=== PATIENT | female | born 1975 | race Caucasian/White ===

== ENCOUNTER 2017-08-09 08:18 | Emergency (ER) | payer BC, SELFPAY ==
[2017-08-09 08:19] VITALS: BP 154/84; PULSE 71; RESP 19; TEMP 37; O2SAT 100; BMI 34.4
--- NOTE | 2017-08-09 08:33 | EKG12_ITS ---
Test Reason : CP Blood Pressure : / mmHG Vent. Rate : 066 BPM Atrial Rate : 066 BPM P-R Int : 168 ms QRS Dur : 088 ms QT Int : 408 ms P-R-T Axes : 055 030 025 degrees QTc Int : 427 ms Normal sinus rhythm Normal ECG Confirmed by DEE SMITH ([id number]), acquisitions editor CONNER AMBROCIO ([id number]) on 08/13/2017 4:02:02 PM Referred By: JANNET/CAROLINE Confirmed By:DEE SMITH
--- NOTE | 2017-08-09 08:33 | RAD_ITS ---
STUDY: X-RAY CHEST REASON FOR EXAM: Female, 42 years old. Chest pain this morning. Headache and nausea. TECHNIQUE: Frontal and lateral views of the chest. COMPARISON: None. FINDINGS: The lungs are clear and expanded. There is no demonstrated pleural abnormality. Normal size heart. Normal mediastinum and lia. Normal visualized pulmonary arteries. Normal visualized aortic arch and descending thoracic aorta. Normal visualized thoracic spine. Normal visualized ribs, clavicles, and shoulders. There is no demonstrated abnormality of the visualized soft tissue structures of the upper abdomen. RAD/Chest PA and Lateral IMPRESSION: Normal x-ray examination of the chest. Electronically Signed: Huang Morales MD at 9:31 EDT , Service support ,
[2017-08-09] MEDS: Aspirin 81 MG TAB.CHEW 324 MG PO (08:44)
[2017-08-09 08:45] VITALS: O2SAT 100
[2017-08-09 08:56] LABS: Absolute Lymphocyte Count 2.19 X10^3/ul (0.83-4.51); Absolute Neutrophil Count 3.6 X10^3/uL (2.0-7.7); Basophil# 0.03 X10^3/uL; Basophil% 0.5 % (0-1); Eosinophil# 0.09 X10^3/uL; Eosinophils% 1.4 % (0-5); Hematocrit 43.7 % (37-47); Hemoglobin 15.6 g/dl (12.0-15.0); Lymphocyte # 2.19 X10^3/ul (4.0); Lymphocyte % 33.7 % (19-41); Mean Corp Hgb Conc 35.7 g/gl (32-36); Mean Corpuscular Hgb 32.2 pg (27.0-32.0); Mean Corpuscular Volume 90.1 fL (81-99); Mean Platelet Vol. 10.5 fl (6.2-12.0); Monocyte# 0.55 X10^3/uL; Monocyte% 8.5 % (0-10); Neutrophil # 3.63 X10^3/uL (2.7-7.7); Neutrophil % 55.7 % (47-70); Platelet Count 198 K/mm3 (150-450); RBC Distribution Width CV 11.8 % (11.6-14.6); RBC Distribution Width SD 38.8 fl (35.1-43.9); Red Blood Count 4.85 M/mm3 (4.2-5.4); White Blood Count 6.5 K/mm3 (4.4-11.0)
[2017-08-09 09:08] LABS: POSITIVE COUNT NO; POSITIVE DIFFERENTIAL NO; POSITIVE MORPHOLOGY NO
[2017-08-09 09:10] LABS: International Normalized Ratio 1.1; Prothrombin Time (Protime)PT. 13.8 SECONDS (11.7-14.9)
[2017-08-09 09:16] LABS: BUN 9 mg/dL (7-18); Creatinine, Serum 0.89 mg/dL (0.55-1.02); Estimated Creatinine Clearance 79.26 ml/min; Glucose 109 mg/dL (74-106)
[2017-08-09 09:17] LABS: Anion Gap 9 (5-15); BUN/Creat Ratio 10.1 RATIO (10-20); Calcium,Total 9.2 mg/dL (8.5-10.1); Chloride 104 mmol/L (98-107); EST Glomerular Filtration Rate 73 mL/min (>60); Est Glom Filt Rate - Afr Amer 89 mL/min (>60); Potassium 3.8 mmol/L (3.5-5.1); Sodium Level 141 mmol/L (136-145)
[2017-08-09 09:24] VITALS: BP 132/7; PULSE 60; RESP 18; O2SAT 99
--- NOTE | 2017-08-09 09:44 | CT_ITS ---
STUDY: CTA CHEST REASON FOR EXAM: Female, 42 years old. Chest pain radiating into the back and neck. RADIATION DOSAGE (If Supplied By Facility): CTDIvol = ( 16.35 ) mGy, DLP = ( 496.04 ) mGycm TECHNIQUE: The examination was performed with the intravenous administration of 100ML ml of Isovue 370 contrast material. Post-processing of the angiographic images was performed, with multiplanar reformation and 3D reconstruction. Individualized dose optimization techniques were used for this CT. COMPARISON: None. FINDINGS: Normal enhancement of the main pulmonary artery and right and left pulmonary arteries. Normal enhancement of the bilateral peripheral pulmonary arteries. There is no demonstrated pulmonary embolism. Normal thoracic aorta and visualized great vessels. There is no demonstrated aortic dissection. Normal heart and pericardium. Normal mediastinum. Normal hilar regions. No visible pathologic adenopathy. Normal visualized trachea and bronchi. The lungs are well expanded. There are a few, scattered, tiny foci of subsegmental atelectasis. Is no pleural effusion. There is no pneumothorax. Normal chest wall structures. There is no acute osseous abnormality. There is no suspicious lytic or blastic osseous finding. Mild diffuse degenerative changes seen throughout the spine. Normal visualized upper abdomen. CT/CTA Chest W/WO Contrast IMPRESSION: Normal CTA chest examination, without a demonstrated pulmonary embolism or arterial dissection. Electronically Signed: Huang Morales MD at 11:20 EDT , Service support ,
[2017-08-09 11:00] VITALS: BP 116/68; PULSE 60; RESP 18; O2SAT 99
--- NOTE | 2017-08-09 11:37 | EKG12_ITS ---
Test Reason : REPEAT Blood Pressure : / mmHG Vent. Rate : 054 BPM Atrial Rate : 054 BPM P-R Int : 176 ms QRS Dur : 088 ms QT Int : 440 ms P-R-T Axes : 038 028 024 degrees QTc Int : 417 ms Sinus bradycardia with sinus arrhythmia Otherwise normal ECG Confirmed by DEE SMITH ([id number]), video editor CONNER AMBROCIO ([id number]) on 08/13/2017 4:02:10 PM Referred By: ALYSON Confirmed By:DEE SMITH
[2017-08-09 12:23] LABS: AST(SGOT) 26 U/L (15-37); Alanine Aminotransfer ALT/SGPT 32 U/L (13-56); Albumin, Serum 3.7 g/dL (3.2-5.0); Alkaline Phosphatase 53 U/L (45-117); Bilirubin, Direct 0.12 mg/dL (0.00-0.30); Globulin 3.6 g/dL (2.2-4.2); Lipase 169 U/L (73-393); Protein, Total 7.3 g/dL (6.4-8.2)
[2017-08-09 12:34] VITALS: BP 127/67; PULSE 54; RESP 13; O2SAT 98
--- NOTE | 2017-08-09 12:42 | ED.VISSUMM ---
- ER Visit Summary Date of Service: 08/09/17 Chief Complaint: Chest pain History of Present Illness: The patient is a 42 F who presents with chest pain. It began suddenly 1 hour ago with light activity while getting ready for the day. She describes it as burning and pressure-like similar to indigestion. No exacerbating or relieving factors. She reports nausea. She states she had a headache a couple of days ago which was relieved with ibuprofen and none since that time. She states that her pain radiated through into her back and upper back. At the time of presentation she rated his pain as a 6 out of 10. Physical Examination: Blood pressure 154/84 vitals otherwise unremarkable Moist mucous membranes Heart regular rate and rhythm Lungs are clear chest is nontender Back is nontender Abdomen soft and nontender Extremities nontender without edema 2+ radial pulses Alert Test Results: EKG shows normal sinus rhythm at a rate of 66. Repeat EKG unchanged. Chest x-ray is normal. CTA shows no evidence of PE or dissection. Laboratory studies including CBC BMP hepatic function lipase INR and troponin all normal. Repeat troponin normal. Emergency Department Course and Treatment: Patient presents with atypical chest pain. Her heart score is 0. Her IZZY risk score is 0. Given report of pain radiating through to the back I did also obtain a CTA of the chest to rule out dissection which was normal. Given that she did have some burning pain this could be related to a gastrointestinal etiology such as reflux or esophageal spasm. Family also asked about the possibility of it being her gallbladder. She denies any abdominal pain. I explained I feel that this is unlikely but did add on a hepatic function lipase. There is certainly no evidence of acute cholecystitis given no fever tachycardia white count. She was advised to follow-up as an outpatient. She does feel better on reevaluation. All questions answered bedside. Patient discharged. Treatment Plan: [] Disposition: Discharge Impression: Chest pain This note was generated with [employer] dictation software. It may contain incorrect words, spelling, and punctuation that were not noted in review of the chart prior to signing ED Disposition - Plan for ED Patient: Chief Complaint: Chest Pain Referrals: Dior Tolbert MD [Primary Care Provider] -
[2017-08-09 12:46] VITALS: BP 126/71; PULSE 55; RESP 17; O2SAT 100
--- NOTE | 2017-08-09 12:46 | ED.DCSUM_ITS ---
- ER Visit Summary Date of Service: 08/09/17 Chief Complaint: Chest pain History of Present Illness: The patient is a 42 F who presents with chest pain. It began suddenly 1 hour ago with light activity while getting ready for the day. She describes it as burning and pressure-like similar to indigestion. No exacerbating or relieving factors. She reports nausea. She states she had a headache a couple of days ago which was relieved with ibuprofen and none since that time. She states that her pain radiated through into her back and upper back. At the time of presentation she rated his pain as a 6 out of 10. Physical Examination: Blood pressure 154/84 vitals otherwise unremarkable Moist mucous membranes Heart regular rate and rhythm Lungs are clear chest is nontender Back is nontender Abdomen soft and nontender Extremities nontender without edema 2+ radial pulses Alert Test Results: EKG shows normal sinus rhythm at a rate of 66. Repeat EKG unchanged. Chest x-ray is normal. CTA shows no evidence of PE or dissection. Laboratory studies including CBC BMP hepatic function lipase INR and troponin all normal. Repeat troponin normal. Emergency Department Course and Treatment: Patient presents with atypical chest pain. Her heart score is 0. Her IZZY risk score is 0. Given report of pain radiating through to the back I did also obtain a CTA of the chest to rule out dissection which was normal. Given that she did have some burning pain this could be related to a gastrointestinal etiology such as reflux or esophageal spasm. Family also asked about the possibility of it being her gallbladder. She denies any abdominal pain. I explained I feel that this is unlikely but did add on a hepatic function lipase. There is certainly no evidence of acute cholecystitis given no fever tachycardia white count. She was advised to follow -up as an outpatient. She does feel better on reevaluation. All questions answered bedside. Patient discharged. Treatment Plan: [] Disposition: Discharge Impression: Chest pain This note was generated with [employer] dictation software. It may contain incorrect words, spelling, and punctuation that were not noted in review of the chart prior to signing ED Disposition - Plan for ED Patient: Chief Complaint: Chest Pain Referrals: Dior Tolbert MD [Primary Care Provider] -
--- NOTE | 2017-08-09 12:46 | ED.DEP ---
ED Disposition - Plan for ED Patient: Chief Complaint: Chest Pain Instructions: ED Chest Pain NonCardiac Prescriptions: Omeprazole [Prilosec] 20 mg PO DAILY #30 cap Referrals: Dior Tolbert MD [Primary Care Provider] -
== END 2017-08-09 12:55 | disposition home or self-care (01) ==
LOC: ED 08:51
PROVIDERS: Emergency Provider Emergency Medicine; Family Provider Family Medicine; PCP Family Medicine
DX: R07.9 Chest pain, unspecified (principal); R11.0 Nausea; R51 Headache
CPT/HCPCS: 71046; 71275; 80048; 80076; 83690; 84484; 85025; 85610; 93005; 99284; Q9967; A4216

== ENCOUNTER → 2017-08-13 10:47 | Outpatient (CLI) | payer BC, SELFPAY ==
--- NOTE | 2017-08-13 10:51 | RAD_ITS ---
STUDY: X-RAY - LUMBAR SPINE REASON FOR EXAM: Female, 42 years old. Lumbar strain. TECHNIQUE: 5 view(s) of the lumbar spine were obtained. COMPARISON: None FINDINGS: Normal lumbar lordosis. There is no substantial scoliosis. There is a normal alignment of the vertebrae. Normal vertebral bodies and endplates. Normal disc space heights. There is no evidence of acute fracture or loss of vertebral axial height. There is no demonstrated spondylolysis of the pars interarticulares. The soft tissue structures are unremarkable. RAD/L/S Spine Min 4 Views IMPRESSION: Normal x-ray examination of the lumbar spine. Electronically Signed: Francisco Perez DO at 16:53 EDT Tel [phone], Service support ,
== END ==
PROVIDERS: Family Provider Family Medicine; PCP Family Medicine; Visit Provider Family Medicine
DX: S39.012A Strain of muscle, fascia and tendon of lower back, initial encounter (principal)
CPT/HCPCS: 72110

== ENCOUNTER 2017-10-25 16:00 | Outpatient (RCR) | payer BC, SELFPAY ==
--- NOTE | 2017-08-27 12:19 | HP.PTEVAL_ITS ---
Patient's Visit Information ANA MARÍA SAHU is a 42 year old F referred to Physical Therapy by Dior Tolbert MD with a diagnosis of LOW BACK PAIN. Date of Evaluation: 08/27/17 Physical Therapist: Emilia Smith - Visit Plan Frequency: 2x /Week Duration: 4-6 Weeks Plan: POSTURE CORRECTION/STRENGTHENING, INSTRUCTION IN APPROPRIATE BODY MECHANICS AND ACTIVITY MODIFICATIONS. DLS STARTING WITH A NEUTRAL SPINE PROGRESSING ROM TOLERATED. VÍCTOR LE ROM, STRETCHING AND STRENGTHENING. HEP INSTRUCTION. CONSIDER AQUATIC THERAPY. - Subjective Subjective: Diagnosis: LOW BACK PAIN. 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 Disability: NO. Present symptoms : VÍCTOR LBP RIGHT > LEFT. LATELY MID AND UPPER BACK PAIN TOO ALL THE WAY UP TO NECK. RIGHT POST PROX THIGH TINGLING. Present since: CHRONIC BACK PAIN WITH A FLARE UP IN MAY OR JUNE 2017. Pain Scale: WORST 4/10, LEAST 1/10. Currently : 10. Commenced as a result of: NO APPARENT REASON OTHER THAN TRYING TO RESUME RUNNING AFTER ABOUT 2 YEARS. Symptoms at onset: THIS EPISODE RIGHT LOW BACK PAIN. CHRONIC L LOW BACK PAIN. Worse: SITTING, STANDING , WALKING, BENDING OVER, WEEDING, SOMEONE TOUCHING YOUR BACK LIKE MASSAGE. Better: NAPROXEN. Disturbed sleep: NO. Previous history/Previous treatment: MEDICINES, RECENTLY TRIED ABOUT 6 CHIRO VISITS - NO LASTING BENEFIT. PATIENT REPORTS SHE ISN'T SURE IF THE CHIROPRACTIC VISITS MADE IT WORSE OR NOT. NO BACK SURGERY. NO BACK INJECTION. NO PT. PATIENT REPORTS HER DOCTOR THINKS SOMETHING THE CHIROPRACTOR DID MIGHT HAVE TRIGGERED HER CHEST PAIN EPISODES. STATES HAVING INCREASED PAIN AND BEING VERY TIRED AFTER SOME OF THE CHIROPRACTIC VISITS. Coughing/sneezing/straining: NEGATIVE. Gait: DISTANCE LIMITED. NO AD'S. Difficulty initiating urinatin: NO. Accidents: NO. Unexplained weight loss: NO. Imaging: LUMBAR X-RAYS - NO STRESS FRACTURES - NORMAL. PMH: ED 3 WEEKS AGO WITH SEVERE CHEST PAINS POSSIBLY DUE TO SPINE PAIN. THIS WAS THE SECOND EPISODE OF SEVERE CHEST PAIN RECENTLY AND SHE DID NOT GO TO THE ED THE FIRST TIME. CAT SCAN AND CHEST X-RAY - NORMAL. OTHERWISE IN GOOD HEALTH. Recent major surgery: UNREMARKABLE. - Objective Sitting Posture: POOR. Standing Posture: POOR. Lordosis: NORMAL. Lateral shift: NO. Relevant shift: N/A. Active Correction of posture: WORSE. Other Observations: INDEP GAIT INTO PT WITHOUT AD OR GROSS DEVIATION NOTED. FREQUENT CHANGE OF POSITION IN SITTING. Motor deficit: VÍCTOR LE'S 5/5 WITH MMT'ING EXCEPT HIPS GRADED 4-/5. Sensory deficit: VÍCTOR LE LIGHT TOUCH SENSATION INTACT AND SYMMETRICAL. ROM deficit: TIGHT VÍCTOR LE HS'S AND GASTROC-SOLEUS COMPLEX'S. Reflexes: 2/3 VÍCTOR LE'S. Dural Signs: POSITIVE VÍCTOR LE'S. Lumbar mvmt loss: flex - NIL. ext - MOD. R SG - MIN. L SG - MIN. Core strength: POOR. Palpation: TENDERNESS WITH PALPATION OF THE L45S1 REGION, RIGHT SI AND RIGHT PIRIFORMIS REGIONS. - Goals Goal 1:: DECREASE C/O LBP AND RIGHT LE SX'S. Goal Time Frame: 4-6 Weeks Goal 2:: IMPROVE LIFTING, WALKING, SITTING, STANDING, SOCIAL LIFE, TRAVEL AND HOMEMAKING FUNCTION Goal Time Frame: 4-6 Weeks Goal 3:: INSTRUCT IN PROPHYLAXIS Goal Time Frame: 4-6 Weeks - Rehabilitation Potential Rehabilitation Potential: Good - Anticipated Interventions Patient/Client Instruction: Educate patient on: Condition, Plan of Care, Risk Factors, Benefits of Fitness Program For the Purpose of:: To improve self management Therapeutic Exercise to Include: Strength training, Body mechanics, Postural training, Flexibilty training, In an aquatic setting, Active ROM, Dynamic Lumbar Stabilization For the Purpose of:: To decrease pain, To improve muscle performance and motor function, To increase tolerance to activity/condition/position, To improve ability of physical actions for home/community/work/leisure TENS: Yes IF ES: Yes Cryotherapy (ice pack, ice massage): Yes Thermo therapy (hot pack): Yes Ultrasound (thermal/non thermal): Yes For the Purpose of:: To decrease pain, To decrease swelling/inflammation, To increase ROM, To improve nutrient delivery to tissue Thank you for the opportunity to evaluate your patient. For Medicare and Medicare HMO plans, please review the plan of care and approve it. It will need to be FAXED BACK to us at [phone] for Medicare purposes. Please let me know if there are questions or concerns regarding this plan of care. Physician Signature: Date:
--- NOTE | 2017-10-25 16:29 | HP.PTDCSUM ---
HP - PT D/C Summary It has been my pleasure to treat ANA MARÍA SAHU under orders from Dior Tolbert MD, for the diagnosis of LOW BACK PAIN for a total of 12 visit(s). Discharge Date: Please see the following information for a summary of their discharge status. - Subjective Subjective: PATIENT REPORTS SHE DOES FEEL BETTER AFTER THE WATER BUT HER BACK IS NO BETTER OVER-ALL. - Pain LOW BACK PAIN Pain Intensity (Out of 10): 4 RIGHT BUTTOCK Pain Intensity (Out of 10): 3 - Overall Improvement % Improvement: 0 - Objective Objective/Function: NO SIGNIFICANT SUBJECTIVE OR OBJECTIVE CHANGES SINCE INITIAL EVAL. PATIENT CONTINUES TO HAVE SIGNIFICANT FINDINGS AND REPORTS OF PAIN AND DYSFUNCTION. PATIENT MAY BENEFIT FROM LUMBOSACRAL MRI. Motor deficit: VÍCTOR LE'S 5/5 WITH MMT'ING EXCEPT HIPS GRADED 4-/5. Sensory deficit: VÍCTOR LE LIGHT TOUCH SENSATION INTACT AND SYMMETRICAL. ROM deficit: MILDLY TIGHT VÍCTOR LE HS'S AND GASTROC-SOLEUS COMPLEX'S. Reflexes: 2/3 VÍCTOR LE'S. Dural Signs: POSITIVE VÍCTOR LE'S RIGHT > LEFT. Lumbar mvmt loss: flex - MIN. ext - MOD. R SG - MIN. L SG - MIN. INCREASED C/O PAIN WITH LUMBAR ROM TESTING INTO FLEX AND EXT BUT NOT SO MUCH WITH SG'ING. Core strength: POOR. Palpation: TENDERNESS WITH PALPATION OF THE L45S1 REGION, RIGHT SI AND RIGHT PIRIFORMIS REGIONS. - Goals Goal 1:: DECREASE C/O LBP AND RIGHT LE SX'S. Goal Progress: Not Progressing Goal 2:: IMPROVE LIFTING, WALKING, SITTING, STANDING, SOCIAL LIFE, TRAVEL AND HOMEMAKING FUNCTION Goal Progress: Not Progressing Goal 3:: INSTRUCT IN PROPHYLAXIS Goal Progress: Not Progressing - Plan Plan: D/C DUE TO LACK OF IMPROVEMENT. RECOMMENDED PHYSICIAN FOLLOW UP. - D/C Information If there are questions or concerns regarding this patient's physical therapy, please feel free to call me at [phone]. Thank you for the referral of this patient. Sincerely, Emilia Smith
== END 2017-10-25 19:00 | disposition home or self-care (01) ==
LOC: PT 16:00
PROVIDERS: Family Provider Family Medicine; PCP Family Medicine; Visit Provider Family Medicine
DX: M54.5 Low back pain (principal)
CPT/HCPCS: 97014; 97035; 97110; 97113; 97161; 97164; 97530; G0283

== ENCOUNTER → 2019-12-15 14:40 | Outpatient (CLI) | payer BC, SELFPAY ==
[2019-12-15 18:04] LABS: Absolute Lymphocyte Count 2.14 X10^3/uL (0.83-4.51); Absolute Neutrophil Count 3.5 X10^3/uL (2.0-7.7); Basophil# 0.05 X10^3/uL; Basophil% 0.8 % (0-1); Eosinophil# 0.09 X10^3/uL; Eosinophils% 1.4 % (0-5); Hematocrit 43.4 % (37-47); Hemoglobin 14.1 g/dL (12.0-15.0); Lymphocyte # 2.14 X10^3/ul (4.0); Mean Corp Hgb Conc 32.5 g/dL (32-36); Mean Corpuscular Volume 92.3 fL (81-99); Mean Platelet Vol. 10.7 fl (6.2-12.0); Monocyte# 0.47 X10^3/uL; Monocyte% 7.5 % (0-10); NRBC Flagged by Analyzer 0 % (0-5); Neutrophil # 3.53 X10^3/uL (2.7-7.7); Platelet Count 291 K/mm3 (150-450); RBC Distribution Width CV 11.6 % (11.6-14.6); RBC Distribution Width SD 39.9 fl (35.1-43.9); White Blood Count 6.3 K/mm3 (4.4-11.0)
[2019-12-15 18:28] LABS: Hemoglobin A1c 5.3 % (3.8-5.6)
[2019-12-15 18:33] LABS: Thyroid Stim Hormone (TSH) 2.24 uIU/mL (0.358-3.74)
== END ==
PROVIDERS: PCP Family Medicine; Referring Provider Family Medicine; Visit Provider Family Medicine
DX: E66.9 Obesity, unspecified (principal)
CPT/HCPCS: 36415; 83036; 84443; 85025

== ENCOUNTER → 2019-12-22 12:22 | Outpatient (CLI) | payer BC, SELFPAY ==
--- NOTE | 2019-12-22 12:36 | CT_ITS ---
STUDY: CT CHEST WITH CONTRAST REASON FOR EXAM: Female, 44 years old. THORACIC BACK PAIN/SPASM LASTING FOR HOURS X 3 YRS RADIATION DOSAGE (If Supplied By Facility): CTDIvol = ( 13.19 ) mGy, DLP = ( 533.90 ) mGycm TECHNIQUE: Transaxial imaging was performed following intravenous administration of IV 100mL Isovue-300. Multiplanar coronal and sagittal images were reformatted. Individualized dose optimization techniques were used for this CT. COMPARISON: Comparison is made with prior study dated 08/09/2017. FINDINGS: The lungs are normal. There is no demonstrated pleural abnormality. Normal heart and pericardium. Normal mediastinum. Normal hilar regions. Normal enhanced pulmonary arteries. Normal aorta arch and descending thoracic aorta. There are mild degenerative changes of the thoracic spine. There is no demonstrated abnormality of the visualized upper abdomen. CT/Chest WITH Contrast IMPRESSION: No acute abnormality is seen. Electronically Signed: Aki Cho, at 13:12 EDT , Service support ,
== END ==
PROVIDERS: PCP Family Medicine; Referring Provider Family Medicine; Visit Provider Family Medicine
DX: M54.6 Pain in thoracic spine (principal)
CPT/HCPCS: 71260; Q9967

== ENCOUNTER → 2020-07-11 14:47 | Outpatient (CLI) | payer BC, SELFPAY ==
[2020-07-11 17:44] LABS: Absolute Lymphocyte Count 1.88 X10^3/uL (0.83-4.51); Basophil# 0.05 X10^3/uL; Basophil% 0.7 % (0-1); Eosinophil# 0.06 X10^3/uL; Eosinophils% 0.8 % (0-5); Hematocrit 44.7 % (37-47); Hemoglobin 14.7 g/dL (12.0-15.0); Lymphocyte # 1.88 X10^3/ul (4.0); Mean Corp Hgb Conc 32.9 g/dL (32-36); Mean Corpuscular Hgb 30.7 pg (27.0-32.0); Mean Corpuscular Volume 93.3 fL (81-99); Mean Platelet Vol. 10.9 fl (6.2-12.0); Monocyte# 0.48 X10^3/uL; Monocyte% 6.4 % (0-10); NRBC Flagged by Analyzer 0 % (0-5); Neutrophil # 5.03 X10^3/uL (2.7-7.7); Neutrophil % 66.8 % (47-70); Platelet Count 248 K/mm3 (150-450); RBC Distribution Width CV 12.2 % (11.6-14.6); RBC Distribution Width SD 42.1 fl (35.1-43.9); Red Blood Count 4.79 M/mm3 (4.2-5.4); White Blood Count 7.5 K/mm3 (4.4-11.0)
[2020-07-11 17:58] LABS: Erythrocyte Sedimentation Rate 6 mm/hr (0-30)
[2020-07-11 18:23] LABS: CRP < 2.90 mg/L (0.0-3.0); Rheumatoid Factor < 10.0 IU/mL (<15)
[2020-07-13 16:08] LABS: PROEL- A/G Ratio 1.2 (0.7-1.7); PROEL- Albumin 3.7 g/dL (2.9-4.4); PROEL- Alpha-1 Globulin 0.3 g/dL (0.0-0.4); PROEL- Alpha-2 Globulin 0.7 g/dL (0.4-1.0); PROEL- Beta Globulin 1.1 g/dL (0.7-1.3); PROEL- Gamma Globulin 1.2 g/dL (0.4-1.8); PROEL- Globulin, Total 3.2 g/dL (2.2-3.9); PROEL- TOTAL PROTEIN 6.9 g/dL (6.0-8.5)
[2020-07-13 16:11] LABS: ANTINUCLEAR ANTIBODIES DIRECT Negative (Negative)
== END ==
PROVIDERS: PCP Family Medicine; Referring Provider Family Medicine; Visit Provider Family Medicine
DX: M25.50 Pain in unspecified joint (principal)
CPT/HCPCS: 36415; 84165; 84550; 85025; 85652; 86038; 86140; 86431

== ENCOUNTER → 2020-08-17 | Outpatient (CLI) | payer OTHER, BC, SELFPAY ==
--- NOTE | 2020-08-17 14:10 | RAD_ITS ---
STUDY: X-RAY - PELVIS REASON FOR EXAM: Female, 45 years old. INFLAM POLYARTHROPATHY TECHNIQUE: One view of the pelvis was obtained. COMPARISON: None. FINDINGS: There is a non-specific bowel gas pattern. Bilateral tubal ligation clips. There is a calcified phlebolith in the right hemipelvis. Normal bilateral iliac wings, sacroiliac joints and visualized sacrum. Normal visualized bilateral superior and inferior pubic rami. Normal pubic symphysis. Normal ischial tuberosities. Normal visualized right femoral head. Normal right acetabulum. Normal right hip joint. Normal visualized left femoral head. Normal left acetabulum. Normal left hip joint. RAD/Pelvis 1 or 2 Views IMPRESSION: Normal x-ray examination of the pelvis. Electronically Signed: Aki Cho MD at 15:40 EDT , Service support ,
[2020-08-17 17:34] LABS: Absolute Lymphocyte Count 2.07 X10^3/uL (0.83-4.51); Absolute Neutrophil Count 3.9 X10^3/uL (2.0-7.7); Basophil# 0.08 X10^3/uL; Basophil% 1.2 % (0-1); Eosinophil# 0.08 X10^3/uL; Eosinophils% 1.2 % (0-5); Hematocrit 43.4 % (37-47); Hemoglobin 14.2 g/dL (12.0-15.0); Lymphocyte # 2.07 X10^3/ul (0.83-4.51); Lymphocyte % 31.2 % (19-41); Mean Corp Hgb Conc 32.7 g/dL (32-36); Mean Corpuscular Hgb 30.3 pg (27.0-32.0); Mean Corpuscular Volume 92.7 fL (81-99); Mean Platelet Vol. 10.5 fl (6.2-12.0); Monocyte% 7.5 % (0-10); NRBC Flagged by Analyzer 0 % (0-5); Neutrophil # 3.87 X10^3/uL (2.7-7.7); Neutrophil % 58.4 % (47-70); Platelet Count 275 K/mm3 (150-450); RBC Distribution Width CV 11.9 % (11.6-14.6); RBC Distribution Width SD 40.4 fl (35.1-43.9); Red Blood Count 4.68 M/mm3 (4.2-5.4); White Blood Count 6.6 K/mm3 (4.4-11.0)
[2020-08-17 18:09] LABS: ALB/GLOB Ratio 1.1 RATIO (0.9-2.4); AST(SGOT) 19 U/L (15-37); Alanine Aminotransfer ALT/SGPT 27 U/L (13-56); Albumin, Serum 3.8 g/dL (3.2-5.0); Alkaline Phosphatase 53 U/L (45-117); Anion Gap 6 (5-15); BUN 13 mg/dL (7-18); BUN/Creat Ratio 15.6 RATIO (10-20); Calcium,Total 9.2 mg/dL (8.5-10.1); Chloride 104 mmol/L (98-107); Creatinine, Serum 0.83 mg/dL (0.55-1.02); EST Glomerular Filtration Rate 79 mL/min (>60); Est Glom Filt Rate - Afr Amer 95 mL/min (>60); Globulin 3.5 g/dL (2.2-4.2); Glucose 77 mg/dL (74-106); Protein, Total 7.3 g/dL (6.4-8.2); Rheumatoid Factor < 10.0 IU/mL (<15); Sodium Level 140 mmol/L (136-145)
[2020-08-18 08:22] LABS: Hepatitis B Surface Antibody Non-Reactive; Hepatitis B Surface Antigen Non-Reactive (Nonreactive); Hepatitis C Antibody Non-Reactive (Nonreactive)
[2020-08-20 11:01] LABS: CCP IgG Antibodies 4 units (0-19)
== END | disposition home or self-care (01) ==
PROVIDERS: PCP Family Medicine; Referring Provider Internal Medicine Rheumatology; Visit Provider Internal Medicine Rheumatology
DX: M06.4 Inflammatory polyarthropathy (principal); M79.7 Fibromyalgia
CPT/HCPCS: 36415; 72170; 80053; 85025; 86200; 86431; 86706; 86803; 87340

== ENCOUNTER → 2020-11-11 13:18 | Outpatient (CLI) | payer OTHER, BC, SELFPAY ==
[2020-11-11 15:01] LABS: Absolute Lymphocyte Count 2.19 X10^3/uL (0.83-4.51); Absolute Neutrophil Count 3.8 X10^3/uL (2.0-7.7); Basophil# 0.05 X10^3/uL; Basophil% 0.7 % (0-1); Eosinophil# 0.11 X10^3/uL; Eosinophils% 1.6 % (0-5); Hemoglobin 13.8 g/dL (12.0-15.0); Lymphocyte # 2.19 X10^3/ul (0.83-4.51); Lymphocyte % 32.3 % (19-41); Mean Corp Hgb Conc 32.9 g/dL (32-36); Mean Corpuscular Hgb 30.3 pg (27.0-32.0); Mean Corpuscular Volume 92.3 fL (81-99); Mean Platelet Vol. 10.3 fl (6.2-12.0); Monocyte# 0.63 X10^3/uL; Monocyte% 9.3 % (0-10); NRBC Flagged by Analyzer 0 % (0-5); Neutrophil # 3.78 X10^3/uL (2.7-7.7); Neutrophil % 55.8 % (47-70); Platelet Count 276 K/mm3 (150-450); RBC Distribution Width CV 12.6 % (11.6-14.6); RBC Distribution Width SD 42.1 fl (35.1-43.9); Red Blood Count 4.55 M/mm3 (4.2-5.4); White Blood Count 6.8 K/mm3 (4.4-11.0)
[2020-11-11 15:33] LABS: ALB/GLOB Ratio 1.2 RATIO (0.9-2.4); AST(SGOT) 22 U/L (15-37); Alanine Aminotransfer ALT/SGPT 35 U/L (13-56); Albumin, Serum 3.8 g/dL (3.2-5.0); Alkaline Phosphatase 48 U/L (45-117); Anion Gap 7 (5-15); BUN 11 mg/dL (7-18); BUN/Creat Ratio 13.7 RATIO (10-20); Calcium,Total 8.8 mg/dL (8.5-10.1); Chloride 104 mmol/L (98-107); EST Glomerular Filtration Rate 82 mL/min (>60); Est Glom Filt Rate - Afr Amer 99 mL/min (>60); Globulin 3.3 g/dL (2.2-4.2); Glucose 90 mg/dL (74-106); Potassium 3.7 mmol/L (3.5-5.1); Protein, Total 7.1 g/dL (6.4-8.2); Sodium Level 139 mmol/L (136-145)
== END ==
PROVIDERS: PCP Family Medicine; Referring Provider Internal Medicine Rheumatology; Visit Provider Internal Medicine Rheumatology
DX: M06.4 Inflammatory polyarthropathy (principal); Z79.899 Other long term (current) drug therapy; M79.7 Fibromyalgia
CPT/HCPCS: 36415; 80053; 85025

== ENCOUNTER → 2021-01-18 16:43 | Outpatient (CLI) | payer OTHER, BC, SELFPAY ==
[2021-01-18 17:52] LABS: Absolute Lymphocyte Count 2.33 X10^3/uL (0.83-4.51); Absolute Neutrophil Count 4.4 X10^3/uL (2.0-7.7); Basophil# 0.05 X10^3/uL; Basophil% 0.7 % (0-1); Eosinophil# 0.07 X10^3/uL; Eosinophils% 0.9 % (0-5); Hematocrit 41.3 % (37-47); Lymphocyte # 2.33 X10^3/ul (0.83-4.51); Lymphocyte % 31.5 % (19-41); Mean Corp Hgb Conc 33.9 g/dL (32-36); Mean Corpuscular Hgb 31.7 pg (27.0-32.0); Mean Corpuscular Volume 93.7 fL (81-99); Mean Platelet Vol. 10.4 fl (6.2-12.0); Monocyte# 0.57 X10^3/uL; Monocyte% 7.7 % (0-10); NRBC Flagged by Analyzer 0 % (0-5); Neutrophil # 4.36 X10^3/uL (2.7-7.7); Neutrophil % 59.1 % (47-70); Platelet Count 256 K/mm3 (150-450); RBC Distribution Width CV 12.6 % (11.6-14.6); Red Blood Count 4.41 M/mm3 (4.2-5.4); White Blood Count 7.4 K/mm3 (4.4-11.0)
[2021-01-18 18:06] LABS: AST(SGOT) 12 U/L (15-37); Alanine Aminotransfer ALT/SGPT 26 U/L (13-56); Albumin, Serum 3.8 g/dL (3.2-5.0); Alkaline Phosphatase 46 U/L (45-117); Anion Gap 7 (5-15); BUN 12 mg/dL (7-18); BUN/Creat Ratio 13.2 RATIO (10-20); Calcium,Total 9.1 mg/dL (8.5-10.1); Chloride 105 mmol/L (98-107); Creatinine, Serum 0.91 mg/dL (0.55-1.02); EST Glomerular Filtration Rate 70 mL/min (>60); Est Glom Filt Rate - Afr Amer 85 mL/min (>60); Globulin 3.8 g/dL (2.2-4.2); Glucose 102 mg/dL (74-106); Potassium 3.9 mmol/L (3.5-5.1); Protein, Total 7.6 g/dL (6.4-8.2); Sodium Level 138 mmol/L (136-145)
== END ==
PROVIDERS: PCP Family Medicine; Referring Provider Internal Medicine Rheumatology; Visit Provider Internal Medicine Rheumatology
DX: M06.4 Inflammatory polyarthropathy (principal); Z79.899 Other long term (current) drug therapy; M79.7 Fibromyalgia
CPT/HCPCS: 36415; 80053; 85025

== ENCOUNTER 2021-04-26 08:33 | Outpatient (CLI) | payer OTHER, BC, SELFPAY ==
[2021-04-26 10:15] LABS: Absolute Lymphocyte Count 2.07 X10^3/uL (0.83-4.51); Absolute Neutrophil Count 3.9 X10^3/uL (2.0-7.7); Basophil# 0.09 X10^3/uL; Basophil% 1.4 % (0-1); Eosinophil# 0.16 X10^3/uL; Eosinophils% 2.4 % (0-5); Hematocrit 43.2 % (37-47); Hemoglobin 14.9 g/dL (12.0-15.0); Lymphocyte # 2.07 X10^3/ul (0.83-4.51); Lymphocyte % 31.4 % (19-41); Mean Corp Hgb Conc 34.5 g/dL (32-36); Mean Corpuscular Volume 92.9 fL (81-99); Mean Platelet Vol. 10.3 fl (6.2-12.0); Monocyte# 0.37 X10^3/uL; Monocyte% 5.6 % (0-10); NRBC Flagged by Analyzer 0 % (0-5); Neutrophil # 3.89 X10^3/uL (2.7-7.7); Platelet Count 291 K/mm3 (150-450); RBC Distribution Width CV 11.7 % (11.6-14.6); RBC Distribution Width SD 39.7 fl (35.1-43.9); Red Blood Count 4.65 M/mm3 (4.2-5.4); White Blood Count 6.6 K/mm3 (4.4-11.0)
[2021-04-26 11:04] LABS: ALB/GLOB Ratio 0.9 RATIO (0.9-2.4); AST(SGOT) 18 U/L (15-37); Alanine Aminotransfer ALT/SGPT 27 U/L (13-56); Albumin, Serum 3.7 g/dL (3.2-5.0); Alkaline Phosphatase 50 U/L (45-117); Anion Gap 5 (5-15); BUN 13 mg/dL (7-18); BUN/Creat Ratio 13.3 RATIO (10-20); Calcium,Total 9.7 mg/dL (8.5-10.1); Chloride 105 mmol/L (98-107); Creatinine, Serum 0.98 mg/dL (0.55-1.02); EST Glomerular Filtration Rate 65 mL/min (>60); Est Glom Filt Rate - Afr Amer 78 mL/min (>60); Globulin 3.9 g/dL (2.2-4.2); Glucose 115 mg/dL (74-106); Potassium 4.1 mmol/L (3.5-5.1); Protein, Total 7.6 g/dL (6.4-8.2); Sodium Level 137 mmol/L (136-145)
== END 2021-04-26 23:59 | disposition short-term general hospital (02) ==
LOC: MTLAB 08:35
PROVIDERS: PCP Family Medicine; Referring Provider Internal Medicine Rheumatology; Visit Provider Internal Medicine Rheumatology
DX: M06.4 Inflammatory polyarthropathy (principal); M79.7 Fibromyalgia; Z79.899 Other long term (current) drug therapy
CPT/HCPCS: 36415; 80053; 85025

== ENCOUNTER 2021-06-23 14:42 | Outpatient (CLI) | payer OTHER, BC, SELFPAY ==
[2021-06-23 17:36] LABS: Absolute Lymphocyte Count 2.25 X10^3/uL (0.83-4.51); Absolute Neutrophil Count 3.5 X10^3/uL (2.0-7.7); Basophil# 0.06 X10^3/uL; Basophil% 0.9 % (0-1); Eosinophil# 0.07 X10^3/uL; Eosinophils% 1.1 % (0-5); Hematocrit 42.5 % (37-47); Hemoglobin 14.2 g/dL (12.0-15.0); Lymphocyte # 2.25 X10^3/ul (0.83-4.51); Lymphocyte % 35.4 % (19-41); Mean Corp Hgb Conc 33.4 g/dL (32-36); Mean Corpuscular Hgb 31.1 pg (27.0-32.0); Mean Corpuscular Volume 93.2 fL (81-99); Monocyte# 0.51 X10^3/uL; NRBC Flagged by Analyzer 0 % (0-5); Neutrophil # 3.45 X10^3/uL (2.7-7.7); Neutrophil % 54.3 % (47-70); Platelet Count 261 K/mm3 (150-450); RBC Distribution Width CV 12.4 % (11.6-14.6); RBC Distribution Width SD 42.4 fl (35.1-43.9); Red Blood Count 4.56 M/mm3 (4.2-5.4); White Blood Count 6.4 K/mm3 (4.4-11.0)
[2021-06-23 18:00] LABS: ALB/GLOB Ratio 1.1 RATIO (0.9-2.4); AST(SGOT) 16 U/L (15-37); Alanine Aminotransfer ALT/SGPT 23 U/L (13-56); Alkaline Phosphatase 52 U/L (45-117); Anion Gap 5 (5-15); BUN 11 mg/dL (7-18); BUN/Creat Ratio 13.4 RATIO (10-20); Calcium,Total 9.2 mg/dL (8.5-10.1); Chloride 104 mmol/L (98-107); Creatinine, Serum 0.82 mg/dL (0.55-1.02); EST Glomerular Filtration Rate 79 mL/min (>60); Est Glom Filt Rate - Afr Amer 96 mL/min (>60); Globulin 3.6 g/dL (2.2-4.2); Glucose 84 mg/dL (74-106); Potassium 3.8 mmol/L (3.5-5.1); Protein, Total 7.6 g/dL (6.4-8.2); Sodium Level 138 mmol/L (136-145)
== END 2021-06-23 23:59 | disposition home or self-care (01) ==
LOC: MTLAB 14:45
PROVIDERS: PCP Family Medicine; Referring Provider Internal Medicine Rheumatology; Visit Provider Internal Medicine Rheumatology
DX: M06.4 Inflammatory polyarthropathy (principal); M79.7 Fibromyalgia; Z79.899 Other long term (current) drug therapy
CPT/HCPCS: 36415; 80053; 85025

== ENCOUNTER 2023-09-11 14:59 | Emergency (ER) | payer OTHER, SELFPAY ==
[2023-09-11 15:01] VITALS: BP 148/97; PULSE 86; RESP 14; TEMP 36.2; O2SAT 98
--- NOTE | 2023-09-11 15:08 | RAD_ITS ---
STUDY: X-RAY - RIGHT KNEE REASON FOR EXAM: Female, 48 years old. Pain following injury. TECHNIQUE: 3 view(s) of the knee. COMPARISON: None. FINDINGS: Normal visualized distal femur. Normal visualized proximal tibia and fibula. Normal proximal tibiofibular articulation. Normal medial femorotibial compartment. Normal lateral femorotibial compartment. Normal patellofemoral articulation. The soft tissue structures are unremarkable. RAD/Knee 4 or More Views IMPRESSION: Normal x-ray examination of the knee. Electronically Signed: Aki Cho MD at 15:24 EDT ,
[2023-09-11] MEDS: HYDROcodone Bitartrate/Apap 5/325 Tablet PO (16:43)
[2023-09-11 16:50] VITALS: BP 143/89; PULSE 84; RESP 16; TEMP 36.6; O2SAT 99
--- NOTE | 2023-09-11 18:48 | EDS_ITS ---
HPI History of Present Illness Chief Complaint: Lower Extremity Injury Narrative Narrative: 48-year-old female presenting with right knee pain she states she was squatting at work under her desk and felt a pop in her knee. She is unable to bear weight on it. Pain is all below the patella. Denies any direct trauma. No history of knee replacement or knee surgery on his knee. She did not fall or injure self and went PFSH PFS Home Medications ?Medication ?Instructions ?Recorded ?Last Taken ?Type omeprazole 20 mg capsule,delayed 20 mg PO DAILY #30 caps 08/09/17 Unknown Rx release hydrocodone-acetaminophen 5-325mg 1 tab PO Q6H PRN PRN Pain 3 days 09/11/23 Unknown Rx 5mg-325mg #12 TABLETS Allergy/AdvReac Type Severity Reaction Status Date / Time No Known Allergies Allergy Verified 09/11/23 15:04 Social History Smoking Status: Never smoker ROS ROS ED Constitutional Constitutional ED: Denies chills, fever(s) or sweats Eyes Eyes: Denies blurry vision or change in vision ENT ENT ED: Denies ear pain or sore throat Cardiovascular Cardiovascular: Denies chest pain, palpitations or racing heartbeat Respiratory/Chest Respiratory/Chest: Denies cough, dyspnea or sputum Gastrointestinal Gastrointestinal: Denies abdominal pain, constipation, diarrhea, nausea or vomiting Genitourinary Genitourinary ED: Denies dysuria, hematuria or urinary frequency Musculoskeletal Musculoskeletal: Reports other Details: Right knee pain ; Denies arthralgias, myalgias or neck pain Integumentary Denies abscess, Abrasions or rash Neurologic Neurologic: Denies headache(s), paresthesias or weakness Psychiatric Psychiatric: Denies anxiety, depression, suicidal ideation or suicidal thoughts Endocrine Endocrinology: Denies polydipsia or polyuria EXAM Physical Exam Const Vital Signs: 09/11/23 15:01 09/11/23 16:50 Temperature 97.2 F L 97.8 F Temperature Source Temporal Pulse Rate 86 84 Respiratory Rate 14 16 Blood Pressure 148/97 H 143/89 H Blood Pressure Mean 114 107 Pulse Ox 98 99 Oxygen Delivery Method Room Air Positive well nourished General Appearance ED: NAD Resp normal respiratory effort Cardio regular rate and regular rhythm Extremity Extremity Narrative: There is tenderness to palpation below the patella. This appear to be midline. The left knee extensor mechanism is not intact below the patella. The quadriceps tendon appears to be intact. Specifically the patellar tendon. Patient unable to extend. Neuro oriented x3 Sensorium / Orientation: alert Psych mental status grossly normal MDM MDM MDM Narrative Medical decision making narrative: Patient presenting with right knee pain. I do believe she has a patellar tendon rupture based on examination. X-rays of the right knee 4 views on my interpretation show no acute fracture or subluxation. Patient was given Fowler for pain. Discussed the case with Dr. Sarabia from orthopedics as patient is already established with [facility]. He recommended close follow-up as this would likely be surgical. Patient was placed in a knee immobilizer and given Fowler for home. Crutches for ambulation. Impression: 1. Patellar tendon rupture Radiography Diagnostic Testing: Clinical Impression(s) from Imaging Studies Knee X-Ray 09/11/23 15:08 IMPRESSION: Normal x-ray examination of the knee. Electronically Signed: Aki Cho MD at 15:24 EDT Reading Location ID and State: [facility] / [place] , Service support , Discharge Plan Triage Chief Complaint: Lower Extremity Injury ED Provider: Franklin Holder Dx/Rx/DC Orders Clinical Impression: Patellar tendon rupture Prescriptions: New hydrocodone-acetaminophen 5-325 mg tablet 1 tab PO Q6H PRN PRN (Reason: Pain) 3 Days Qty: 12 0RF No Action omeprazole 20 MG capsule 20 mg PO DAILY Qty: 30 0RF Stand Alone Forms: ED Work / School Excuse Primary Care Provider: Leigha Colbert Referrals: Leigha Colbert MD [Primary Care Provider] - Duncan Sarabia MD [Med Staff - Active Staff] - As soon as possible Activity Restrictions/Additional Instructions: I believe you have a patellar tendon rupture of the right knee. I spoke with Dr. Duncan Sarabia. He recommended keeping him in a knee immobilizer. He recommended early follow-up this is likely did not need surgery. Call the office and set up an appointment as soon as possible. Print Language: [place] Disposition Disposition: Home, Self Care Discharge Date/Time: 09/11/23 16:50
== END 2023-09-11 16:50 | disposition home or self-care (01) ==
PROVIDERS: Emergency Provider Student in an Organized Health Care Education/Training Program; PCP Internal Medicine; Visit Provider Student in an Organized Health Care Education/Training Program
DX: S76.111A Strain of right quadriceps muscle, fascia and tendon, initial encounter (principal); X58.XXXA Exposure to other specified factors, initial encounter; Y93.89 Activity, other specified; Y99.0 Civilian activity done for income or pay; Y92.89 Other specified places as the place of occurrence of the external cause
CPT/HCPCS: 73564; 99284